=== PATIENT | male | born 2000 | race Caucasian/White ===

== ENCOUNTER 2019-02-08 16:11 | Outpatient (CLI) | payer BC, SELFPAY ==
[2019-02-08 16:39] LABS: Abs Immature Grans 0.01 k/cumm (0.0-0.09); Absolute Basophil Count 0.08 k/cumm (0.0-0.2); Absolute Lymphocyte Count 2.18 k/cumm (1.2-3.4); Absolute Monocyte Count 0.46 k/cumm (0.11-0.7); Absolute Neutrophil Count 3.92 k/cumm (1.2-6.7); Basophils % 1.2; Eosinophils % 1.5; HCT 42.8 % (40.0-50.0); HGB 14.9 g/dL (13.5-17.5); Immature Grans % 0.1; Lymphocytes % 32.3; Mean Corp. HGB Concentration 34.8 g/dL (32.0-36.0); Mean Corpuscular Hemoglobin 29.2 pg (27.0-33.0); Mean Corpuscular Volume 83.9 fL (80-95); Mean Platelet Volume 10.2 fL (8.0-11.0); Monocytes % 6.8; Neutrophils % 58.1; Platelet Count 233 x1000/uL (130-400); RBC Distribution Width 13.1 % (11.8-14.1); White Blood Cell Count 6.75 k/cumm (4.4-10.8)
[2019-02-08 17:27] LABS: ALT 19 U/L (12-78); AST 15 U/L (15-37); Albumin 4.5 g/dL (3.4-5.0); Alkaline Phosphatase 82 U/L (46-116); Bilirubin, Direct 0.33 mg/dL (0.00-0.20); Bilirubin, Total 2.2 mg/dL (0.2-1.0); Total Protein 7.4 g/dL (6.4-8.2)
[2019-02-08 18:09] LABS: ESR 7 MM/HR (0-15)
[2019-02-11 13:15] LABS: Lyme Ab w Rflx to Lyme Confirm Negative
== END 2019-02-08 16:31 ==
PROVIDERS: PCP Family Medicine; Visit Provider Emergency Medicine
DX: M54.9 Dorsalgia, unspecified (principal); M25.50 Pain in unspecified joint
CPT/HCPCS: 80076; 85652; 85025; 86618

== ENCOUNTER 2020-01-17 11:25 | Outpatient (CLI) | payer BC, SELFPAY ==
[2020-01-18 15:50] LABS: COVID-19 RT-PCR UVMMC Result Negative (Negative)
== END 2020-01-17 11:45 ==
PROVIDERS: PCP Family Medicine; Visit Provider Family Medicine
DX: Z11.59 Encounter for screening for other viral diseases (principal)
CPT/HCPCS: U0003

== ENCOUNTER 2020-01-20 15:10 | Outpatient (CLI) | payer BC, SELFPAY ==
[2020-01-20 15:34] LABS: Kit/Specimen SENT
== END 2020-01-20 15:30 ==
PROVIDERS: PCP Family Medicine; Visit Provider Family Medicine
DX: Z00.8 Encounter for other general examination (principal)
CPT/HCPCS: 36415

== ENCOUNTER 2021-01-15 04:41 | Outpatient (CLI) | payer BC, SELFPAY ==
--- NOTE | 2021-01-15 09:15 | DI.RAD_ITS ---
Exam(s) XR THORACIC SPINE COMPLETE EXAM: XR THORACIC SPINE COMPLETE CLINICAL HISTORY: chronic rt mid back pain, s/p injury 3 yrs ago,RT SIDED MYOFASCIAL PAIN,. TECHNIQUE: 2D digital imaging was performed. COMPARISON: No exams were available for comparison FINDINGS: BONES: There is no fracture or destructive lesion. The vertebral bodies and posterior elements are un remarkable. DISKS:Alignment is within normal limits. Interverebral disc spaces are maintained. SOFT TISSUE: Visualized lungs are clear. IMPRESSION: Unremarkable radiographs of the thoracic spine. DATA REPOSITORY: RADIATION DOSE DELIVERED:
== END 2021-01-15 05:01 ==
PROVIDERS: PCP Family Medicine; Visit Provider Family Medicine
DX: M54.89 Other dorsalgia (principal); M79.18 Myalgia, other site
CPT/HCPCS: 72072

== ENCOUNTER 2021-02-04 01:12 | Outpatient (CLI) | payer BC, SELFPAY ==
--- NOTE | 2021-02-04 10:30 | DI.MRI_ITS ---
Exam(s) MR THORACIC SPINE WO EXAM: MR THORACIC SPINE WO CLINICAL HISTORY: chronic rt upper back pain since work injury 3 yrs,RT SIDED MYOFASCIAL PAIN TECHNIQUE: Multiplanar multisequence MRI of the thoracic spine was performed without intravenous con trast. COMPARISON: CR XR THORACIC SPINE COMPLETE from 01/15/2021 FINDINGS: OSSEOUS: There are no acute appearing thoracic vertebral fractures. There are no ominous osseous les ions in the thoracic vertebrae. THORACIC SPINAL CORD: There is no abnormal signal in the thoracic spinal cord and no evidence of foca l cord atrophy nor focal cord swelling. There is no evidence of syringomyelia nor significant spinal cord dysraphism. There is no evidence of mass at the conus medullaris. The position of the conus me dullaris is at normal level. SIGNIFICANT INDIVIDUAL LEVEL FINDINGS: There is a small focal disc protrusion right paracentral at the T6-T7 level this extends posteriorly approximately 2 millimeters and is 5 millimeters wide. It indents the anterior right side of the the shelly sac. No cord deflection. No prominent central canal stenosis at this level. No foraminal steno sis. PARASPINAL TISSUES: No significant masses nor fluid collections evident. IMPRESSION: 1. There is small right paracentral disc protrusion at T6-T7 level no spinal canal stenosis. This sl ightly indents the anterior thecal sac but not the spinal cord. Central canal dimensions are within normal limits. There is no foraminal stenosis at this level nor elsewhere in the thoracic spinal col umn 2. No evidence of acute or subacute compression fracture. 3. No osseous lesions. DATA REPOSITORY:
== END 2021-02-04 01:32 ==
PROVIDERS: PCP Nurse Practitioner Family; Visit Provider Family Medicine
DX: M54.6 Pain in thoracic spine (principal); M79.18 Myalgia, other site; M51.24 Other intervertebral disc displacement, thoracic region
CPT/HCPCS: 72146

== ENCOUNTER 2021-03-15 21:36 | Observation (INO) | payer BC, SELFPAY ==
[2021-03-15 21:54] VITALS: BP 128/88; PULSE 84; RESP 16; TEMP 36.6; O2SAT 96
--- NOTE | 2021-03-15 22:28 | W.ED.GENAD ---
Discharge Plan Disposition Patient Disposition: [facility] INPATIENT Condition: Good Discharge Details Clinical Impression: Suicidal ideation, Homicidal ideation Admit Date/Time: 03/15/21 23:48 Admit Provider: Fernie Burns Attending Provider: Fernie Burns Primary Care Provider: Michael Zuniga ED Provider: Juve Adam Discharge Data Discharge Date/Time-TO BE ENTERED AT DEPARTURE: 03/16/21 00:21 Medical Decision Making <Jose Lemus MD - Last Filed: 03/17/21 02:11> 20-year-old male with history of autism and depression here with exacerbation of depression, suicidal thoughts, also with thoughts of harming others. Patient is here voluntarily. Patient medically screened and no acute medical condition identified. Plan for crisis screener evaluation. One-to-one patient observation initiated. Lab Data Lab results reviewed: Yes I reviewed the patient's lab results. Labs: Laboratory Tests Range/Units 03/15/21 03/15/21 03/15/21 22:25 22:25 22:25 WBC (4.4-10.8) 10^3/uL 6.48 RBC (4.36-5.78) 10^6/uL 4.95 Hgb (13.5-17.5) g/dL 14.5 Hct (40.0-50.0) % 43.3 MCV (80-95) fL 87.5 MCH (27.0-33.0) pg 29.3 MCHC (32.0-36.0) % 33.5 RDW (11.8-14.1) % 12.3 Plt Count (130-400) 10^3/uL 235 MPV (8.0-11.0) fL 10.7 Immature Gran % 0.3 Neutrophils % 59.9 Lymphocytes % 28.4 Monocytes % 6.8 Eosinophils % 3.4 Basophils % 1.2 Nucleated RBC % % 0 Absolute Neutrophils (1.2-6.7) 10^3/uL 3.88 Absolute Lymphocytes (1.2-3.4) 10^3/uL 1.84 Absolute Monocytes (0.1-0.8) 10^3/uL 0.44 Absolute Eosinophils (0.0-0.7) 10^3/uL 0.22 Absolute Basophils (0.0-0.2) 10^3/uL 0.08 Sodium (136-145) mmol/L 140 Potassium (3.5-5.1) mmol/L 4.2 Chloride (98-107) mmol/L 105 Carbon Dioxide (21.0-32.0) mmol/L 26.1 Anion Gap (3-11) mmol/L 8.9 BUN (7-18) mg/dL 10 Creatinine (0.70-1.30) mg/dL 0.8 Estimated GFR/1.73 m2 (mL/min/1.73m2) >= 60.00 Glucose (74-106) mg/dL 93 Calcium (8.5-10.1) mg/dL 9.4 Total Bilirubin (0.2-1.0) mg/dL 0.9 AST (15-37) U/L 12 L ALT (16-63) U/L 16 Alkaline Phosphatase (46-116) U/L 88 Total Protein (6.4-8.2) g/dL 8.1 Albumin (3.4-5.0) g/dL 4.7 Salicylates (<2.8) mg/dL < 2.8 Acetaminophen (10-30) ug/mL < 2 <Juve Adam DO - Last Filed: 03/15/21 23:54> Case was signed out by my colleague Dr. Lemus. Please refer to his HPI, physical exam assessment and plan. At time of signout we are pending reassessment by mental health. Mental health has assessed the patient and agrees with the need for admission. Patient agrees with this and will be admitted voluntarily for homicidal ideations and depression and questionable suicidality as well. Discussed the case with the hospitalist Dr. Burns, he agrees with the assessment and plan. I have extensively reviewed the treatment plan with the patient. I have addressed all patient concerns at this time. I have also discussed the plan with the admitting physician and they agree with the current assessment and plan and have agreed to assume responsibility for the patient. All parties demonstrate verbal understanding and agreement with our assessment and plan at this time. The documentation in this chart was dictated using [employer] dictation software. Please excuse any dictation errors. HPI <Jose Lemus MD - Last Filed: 03/17/21 02:11> General Mode of arrival: ambulatory. Date/Time Provider Initiated Documentation: 03/15/21 21:52. Limitations to Documentation: no limitations. Information obtained by: patient. HPI Narrative: 20-year-old male with history of autism spectrum disorder and depression, presents with chief complaint of suicidal thoughts. Patient notes that he is fine depression and intermittent suicidal thoughts for years. He states he has suicidal thoughts approximately 3 times per week. Symptoms severe. He states he has had thoughts of taking denies having a kitchen and slitting his wrist. He notes he feels no sridevi. Patient is here voluntarily. According to the patient's sister, she notes she had a conversation with the patient today that was very concerning. She notes that he expressed suicidality to her. He apparently also expressed thoughts of harming his mother. He states that he hates his mother whom he lives with. Sister states that he has had chronic depression and suicidality. She was able to convince him to seek care today. Related Data Home Medications Medication Instructions Recorded Confirmed amitriptyline 10 mg tablet 10 mg PO QHS #30 tab 06/23/20 07/22/20 [id number]-[id number]-[id number]-vit K-lycop 1 tab PO DAILY 03/15/21 03/15/21 [One-A-Day Men's Multivitamin] Previous Rx's Medication Instructions Recorded amitriptyline 10 mg tablet 10 mg PO QHS #30 tab 06/23/20 Allergies Allergy/AdvReac Type Severity Reaction Status Date / Time ENVIRONMENTAL Allergy Unknown Uncoded 12/22/20 14:01 General Stated Complaint: PsychEval ETHEL: 2 Review of Systems <Jose Lemus MD - Last Filed: 03/17/21 02:11> All systems reviewed & are unremarkable except as noted in HPI and below Constitutional Constitutional: Denies headache(s) ENT Ears, Nose, Mouth, and Throat: Denies headache(s) Neurologic Neurologic: Denies headache(s) Psychiatric Psychiatric: Reports anxiety and Reports depression PFS <Jose Lemus MD - Last Filed: 03/17/21 02:11> Medical History Thoracic disc herniation Social History Smoking/Tobacco Use Status: Never Second Hand Exposure: Yes Smoking risk assessment performed?: Yes Alcohol Intake: former Drug use: Current Sobriety Substance use type: does not use and marijuana Caregiver/Support person: No Household members: family Housing: house Communication Needs: None Do you need help understanding health information?: Often Pets and animals: No Sexually active: No Do you think of yourself as: straight/heterosexual Current gender identity: male What is your relationship status?: never How often do you talk on the phone with friends or family?: three or more times per week How often do you get together with friends or relatives?: three or more times per week How often do you attend anabaptist or druze services?: decline to answer Do you belong to any clubs or organized social groups?: no Panel score (0-1 are the most socially isolated patients): 1 Seatbelt use: always Helmet use: Yes Helmet use: always Drive intox or ride w/intox delivery driver assistant: No Do you feel safe at home: Yes Do you feel safe in your relationship?: Yes Exam <Jose Lemus MD - Last Filed: 03/17/21 02:11> Const General: cooperative HENMT Head: normocephalic and atraumatic Mouth: moist mucous membranes Eyes Conjunctivae: normal conjunctivae Sclera: normal sclerae Neck Neck: trachea midline and supple Resp Auscultation: clear to auscultation bilaterally, no rales, no rhonchi and no wheezes Cardio Rate: regular rate and not tachycardic Rhythm: regular rhythm GI Palpation: soft, not firm, no guarding, no masses, not rigid and nontender Skin General skin exam: no rashes or lesions noted Neuro General: patient alert, patient awake, patient oriented x3 and tone normal Extrem General: no edema Psych Mental Status: mental status grossly normal Affect: anxious affect Thought Content: suicidality Course <Jose Lemus MD - Last Filed: 03/17/21 02:11> Vital Signs Vital signs: Vital Signs Temperature 36.6 C 03/15/21 21:54 Pulse 84 03/15/21 21:54 Respiratory Rate 16 03/15/21 21:54 Blood Pressure 128/88 03/15/21 21:54 Pulse Oximetry 96 03/15/21 21:54 Temperature 36.6 C 03/15/21 21:54 Temperature Source Oral 03/15/21 21:54 Pulse 84 03/15/21 21:54 Respiratory Rate 16 07/05/21 21:54 Respiratory Effort 03/15/21 21:55 Blood Pressure 128/88 03/15/21 21:54 Blood Pressure Position Sitting 03/15/21 21:54 Pulse Oximetry 96 03/15/21 21:54 Oxygen Delivery Method Room Air 03/15/21 21:54 Oxygen Flow Rate 0 03/15/21 21:54 Pain Level 0 03/15/21 21:54 Sign Out <Jose Lemus MD - Last Filed: 03/17/21 02:11> Sign Out Data: Sign Out Comment: Follow-up crisis screener recommendation. Last updated by Jose Lemus MD at 03/15/21 23:01
[2021-03-15 22:30] LABS: Abs Immature Grans 0.02 10^3/uL (0.0-0.06); Absolute Basophil Count 0.08 10^3/uL (0.0-0.2); Absolute Eosinophil Count 0.22 10^3/uL (0.0-0.7); Absolute Lymphocyte Count 1.84 10^3/uL (1.2-3.4); Absolute Monocyte Count 0.44 10^3/uL (0.1-0.8); Absolute Neutrophil Count 3.88 10^3/uL (1.2-6.7); Basophils % 1.2; Eosinophils % 3.4; HCT 43.3 % (40.0-50.0); HGB 14.5 g/dL (13.5-17.5); Immature Grans % 0.3; Lymphocytes % 28.4; MCH 29.3 pg (27.0-33.0); MCHC 33.5 % (32.0-36.0); MCV 87.5 fL (80-95); MPV 10.7 fL (8.0-11.0); Monocytes % 6.8; Neutrophils % 59.9; Nucleated RBC 0 %; Platelet Count 235 10^3/uL (130-400); RBC 4.95 10^6/uL (4.36-5.78); RDW 12.3 % (11.8-14.1); RDW-SD 39.4 fL; WBC 6.48 10^3/uL (4.4-10.8)
[2021-03-15 22:43] LABS: ALT 16 U/L (16-63); AST 12 U/L (15-37); Albumin 4.7 g/dL (3.4-5.0); Alkaline Phosphatase 88 U/L (46-116); Anion Gap 8.9 mmol/L (3-11); BUN 10 mg/dL (7-18); Bilirubin, Total 0.9 mg/dL (0.2-1.0); CO2 26.1 mmol/L (21.0-32.0); CREATININE 0.8 mg/dL (0.70-1.30); Calcium 9.4 mg/dL (8.5-10.1); Chloride 105 mmol/L (98-107); Glucose 93 mg/dL (74-106); Potassium 4.2 mmol/L (3.5-5.1); Sodium 140 mmol/L (136-145); Total Protein 8.1 g/dL (6.4-8.2)
--- NOTE | 2021-03-15 22:47 | NUR.NOTE ---
Spoke with pt sister Dalila (call first) , Emilee Mom . She states that pt has been SI for years, they had a long talk, felt like he was more serious about SI. States he alluded to murder/suicide re: mom and sister. Stated to her he hates his mom. They had a nice family vacation recently. Has been looking for work recently. spends his time at home playing video games. No guns at home per sister.
[2021-03-15 22:48] LABS: Salicylate < 2.8 mg/dL (<2.8)
[2021-03-15 22:49] LABS: Acetaminophen < 2 ug/mL (10-30)
--- NOTE | 2021-03-16 00:02 | W.PM.HP.N ---
Date of service: 03/16/21 Time of Service: 00:02 Assessment and Plan Assessment and plan (1) Suicidal ideation: Status: Acute Assessment and plan: Depression, with suicidal/homicidal ideation. Will monitor until bed available for transfer. No active medical issues otherwise. History of Present Illness History of Present Illness Chief Complaint: suicidal Narrative: 20 ,male with h/o depression, brought in by family due to expression of frequent and ongoing suicidal thought as well as thoughts of harming his mother. On no meds. In RER was medically cleared anmd agrees to admission pending availability for transfer. Here in ER has been calm and cooperative. States he feels fine at present. Review of Systems All systems reviewed & are unremarkable except as noted in HPI and below PFSH Medical History Thoracic disc herniation Social History Smoking/Tobacco Use Status: Never Second Hand Exposure: Yes Smoking risk assessment performed?: Yes Alcohol Intake: former Drug use: Current Sobriety Substance use type: does not use and marijuana Caregiver/Support person: No Household members: family Housing: house Communication Needs: None Do you need help understanding health information?: Often Pets and animals: No Sexually active: No Do you think of yourself as: straight/heterosexual Current gender identity: male What is your relationship status?: never How often do you talk on the phone with friends or family?: three or more times per week How often do you get together with friends or relatives?: three or more times per week How often do you attend jewish or buddhist services?: decline to answer Do you belong to any clubs or organized social groups?: no Panel score (0-1 are the most socially isolated patients): 1 Seatbelt use: always Helmet use: Yes Helmet use: always Drive intox or ride w/intox subway train driver: No Do you feel safe at home: Yes Do you feel safe in your relationship?: Yes Meds Allergies and Home Medications Allergies Allergy/AdvReac Type Severity Reaction Status Date / Time ENVIRONMENTAL Allergy Unknown Uncoded 12/22/20 14:01 Home Medications Medication Instructions Recorded Confirmed Type amitriptyline 10 mg tablet 10 mg PO QHS #30 tab 06/23/20 07/22/20 Rx uuavsewl-bzx-wswln-vit K-lycop 1 tab PO DAILY 03/15/21 03/15/21 History [One-A-Day Men's Multivitamin] Exam Narrative Exam Narrative: 128/88, 84, 36.6, 16, 96% RA. HEENT atraumatic; neck supple; lungs clear; heart RRR; abdomen soft and NT; extremities w/o edema; neuro Ox3, flat affect, does not appear to be responding to internal stimuli, moves all 4s./ Results Labs Result diagrams: 03/15/21 22:25 03/15/21 22:25 Labs: Laboratory Results - last 24 hr 03/15/21 03/15/21 03/15/21 22:25 22:25 22:25 WBC 6.48 RBC 4.95 Hgb 14.5 Hct 43.3 MCV 87.5 MCH 29.3 MCHC 33.5 RDW 12.3 Plt Count 235 MPV 10.7 Immature Gran % 0.3 Neutrophils % 59.9 Lymphocytes % 28.4 Monocytes % 6.8 Eosinophils % 3.4 Basophils % 1.2 Nucleated RBC % 0 Absolute Neutrophils 3.88 Absolute Lymphocytes 1.84 Absolute Monocytes 0.44 Absolute Eosinophils 0.22 Absolute Basophils 0.08 Sodium 140 Potassium 4.2 Chloride 105 Carbon Dioxide 26.1 Anion Gap 8.9 BUN 10 Creatinine 0.8 Estimated GFR/1.73 m2 >= 60.00 Glucose 93 Calcium 9.4 Total Bilirubin 0.9 AST 12 L ALT 16 Alkaline Phosphatase 88 Total Protein 8.1 Albumin 4.7 Salicylates < 2.8 Acetaminophen < 2 Last Vital Signs Temp 36.6 C 03/15/21 21:54 Pulse 84 03/15/21 21:54 Resp 16 03/15/21 21:54 BP 128/88 03/15/21 21:54 Pulse Ox 96 03/15/21 21:54
[2021-03-16 00:16] LABS: Source Nasal/Nares
[2021-03-16 00:27] VITALS: BP 128/73; PULSE 92; RESP 16; TEMP 37.1; O2SAT 98
[2021-03-16 00:29] LABS: *AMPHETAMINES SCREEN URINE Negative (Negative); *BARBITURATES SCREEN URINE Negative (Negative); *BENZODIAZEPINES SCREEN URINE Negative (Negative); Cannabinoids THC Negative (Negative); Cocaine Screen,Urine Negative (Negative); METHADONE URINE SCREEN Negative (Negative); OPIATES URINE SCREEN Negative (Negative); Tricyclic Antidepressants Negative (Negative)
--- NOTE | 2021-03-16 00:30 | NUR.NOTE ---
Nursing Note: One on one patient moved from ER to room 234 via wheelchair with Device Processing Engineer escort
[2021-03-16 00:33] VITALS: BP 111/71; PULSE 64; RESP 18; TEMP 36.6; O2SAT 97
[2021-03-16 00:40] VITALS: BP 111/71; PULSE 64; RESP 18; TEMP 36.6; O2SAT 97
--- NOTE | 2021-03-16 00:57 | PDOC.MHPN2 ---
Date of service: 03/16/21 Time of Service: 01:06 Mental Health Progress Note Progress Note Progress Note: Presenting Issue: Client presents to ED for SI with plan, and homicidal ideation toward his mother. Client reports history of SI and attempt by hanging in 2017, and history of depression. Precipitating Factors Client reports that chronic pain from a work accident has exacerbated his SI and depression. Client currently lives with his mother, and reports that her neglect and his resentment toward his mother has triggered client to ant to endd his mother's life. Client states he is uncomfortable giving detail on plan/intent around the HI, but reports plan/no intent around SI to be cutting his throat or wrist, or drowning himself. Disposition * Behavior: Client is cooperative and calm *Eye Contact: good/consistent *Mood: depressed *Affect: flat *Appetite: normal *Sleep(troubel falling/staying asleep): poor Plan(please elaborate and include that physician is consulted with plan and/or placement): Client will remain at [facility] to await voluntary placement. Duty to warn initiated with P at 0005 hours 03/16/21 for Emilee Rubio. Clinician's Name , Title, and Signature Shelley Hawkins Type Inspector Make sure that you are photocopying and submitting this to [facility] records Dept. to be scanned into chart.
[2021-03-16 00:58] LABS: COVID-19 PCR Negative (Negative)
[2021-03-16 07:55] VITALS: BP 125/88; PULSE 103; RESP 15; TEMP 36.7; O2SAT 99
--- NOTE | 2021-03-16 12:11 | CMSP_ITS ---
- If Service Date Differs Date of service: 03/16/21 Time of Service: 12:11 Care Management Safety Plan Status: Voluntary - Reason for Wait Reason for Wait: Inpatient Admission VOLUNTARY FOR INPATIENT PSYCHIATRIC STABILIZATION. Patient is appropriate in all interactions since arriving at [facility]; Pt has demonstrated appropriate coping and communication skills, has articulated his or her needs and concerns and is fully engaged during staff interactions. Safety plan has been established with patient, and care team, to adhere to patient goals, identify restrictions based on behavioral status, address nutr ition, and determine allowed personal belongings, tools for hygiene and personal care. Determine level of activity including ambulation, level of supervision, visitors, and determine privileges based on behaviors and level of engagement by pt. SAFETY PLAN: 1. Will remain on suicide precautions. In Paper Clothes 2. Will remain in room under direct supervision of one-on-one staff at all times provided by [employer]; MARILYN, COMMISSION SALES ASSOCIATE vertical punch operator. 3. May have paper cups, plates, finger foods as well as a cardboard spoon with which to eat meals. 4. Follow [facility] Management of the Admitted Behavioral Health Patient policy. 5. Comfort bath system or shower, at RN discretion. 6. No personal belongings, per RN discretion. 7. Visitors-No visitors at this time 8. Activities: soft cart items 9. Bathroom privileges available in room without limitation. 10. Phone: incoming/outgoing calls using [facility] phone, at RN discretion. 11. Due to VOLUNTARY status, if patient wishes to leave [facility], staff will contact [facility] Crisis Screener ([phone]) and On-Call Machine Precision Etcher ([phone]) as soon as possible. In the event of elopement, notify [facility] Police ([phone]). Patient is currently voluntarily at [facility] and seeking inpatient admission when a bed becomes available. [facility] Frontline Table Games Floor Supervisor will continue seeking placement. Please contact the House Carpenter Helper Machine Precision Etcher ([phone]) and [facility] Table Games Floor Supervisor ([phone]) for any needed changes in the Safety Plan. Safety plan has been provided to interdepartmental care team.
--- NOTE | 2021-03-16 12:11 | PDOC.CMSAFE ---
- If Service Date Differs Date of service: 03/16/21 Time of Service: 12:11 Care Management Safety Plan Status: Voluntary - Reason for Wait Reason for Wait: Inpatient Admission VOLUNTARY FOR INPATIENT PSYCHIATRIC STABILIZATION. Patient is appropriate in all interactions since arriving at [facility]; Pt has demonstrated appropriate coping and communication skills, has articulated his or her needs and concerns and is fully engaged during staff interactions. Safety plan has been established with patient, and care team, to adhere to patient goals, identify restrictions based on behavioral status, address nutrition, and determine allowed personal belongings, tools for hygiene and personal care. Determine level of activity including ambulation, level of supervision, visitors, and determine privileges based on behaviors and level of engagement by pt. SAFETY PLAN: 1. Will remain on suicide precautions. In Paper Clothes 2. Will remain in room under direct supervision of one-on-one staff at all times provided by [employer]; MARILYN, ELECTRICAL TECHNICIAN INSTRUCTOR chief substation operator. 3. May have paper cups, plates, finger foods as well as a cardboard spoon with which to eat meals. 4. Follow [facility] Management of the Admitted Behavioral Health Patient policy. 5. Comfort bath system or shower, at RN discretion. 6. No personal belongings, per RN discretion. 7. Visitors-No visitors at this time 8. Activities: soft cart items 9. Bathroom privileges available in room without limitation. 10. Phone: incoming/outgoing calls using [facility] phone, at RN discretion. 11. Due to VOLUNTARY status, if patient wishes to leave [facility], staff will contact [facility] Crisis Screener ([phone]) and On-Call Tub Mender ([phone]) as soon as possible. In the event of elopement, notify [facility] Police ([phone]). Patient is currently voluntarily at [facility] and seeking inpatient admission when a bed becomes available. [facility] Frontline Garment Tag Stringer will continue seeking placement. Please contact the Attendant Honor Bar Tub Mender ([phone]) and [facility] Garment Tag Stringer ([phone]) for any needed changes in the Safety Plan. Safety plan has been provided to interdepartmental care team.
--- NOTE | 2021-03-16 12:18 | NUR.NOTE ---
Nursing Note: 1217: informed pt that his sister, Dalila, had called. pt seems pleased that Dalila will visit when she is allowed. RN notes that pt is sitting on the floor rather than on the stretcher. RN asks pt if he would be more comfortable with the mattress on the floor, pt reports that he believes he would be. RN removes mattress from stretcher and places it on the floor for pt comfort. pt seems appreciative of change. pt currently sitting on mattress up against the wall with blanket wrapped around his shoulders. continue to monitor.
--- NOTE | 2021-03-16 12:21 | CMPROGNOTE_ITS ---
- If Service Date Differs Date of service: 03/16/21 Time of Service: 12:21 Care Management Progress Note S/O: Silver was sitting on his mattress, which was placed on the floor at his request, when CM met with him. He reported that he was feeling ok at that time. CM asked if he continues to have suicidal thoughts to which he responded, no, but there is nothing here for me to hurt myself with. He reported that he lives with his mother, and they do not get along well. He stated that they have not had a good relationship for a long time. He stated that he is currently not working. CM asked if he was interested in anything to keep him busy while he awaits psychiatric placement, which he declined. He stated that he is not watching TV by his choice, but it has been offered to him. He then asked if he was able to leave [facility]. CM explained the process, that he is voluntary, but would need to be re assessed by [facility] prior to him leaving, and that he may be kept involuntarily. He asked to start the process to see if he is able to return home. DAVID paged [facility], and Ines [facility], responded and assessed him. From that assessment, he decided to remain at [facility] voluntarily. DAVID discussed his safety plan with his RN, who stated that his older sister has called to check in on him today. His plan will be reassessed tomorrow, and he may be able to have his sister visit, if he is agreeable to this. At this time it is currently after visiting hours. Per DESIREE Rosa, [place] [facility] [place], [place], and [facility]. There were no beds at any of the inpatient psychiatric facilities available today. CM will continue to follow. A: Silver is a 20 year old male admitted to [facility] on 03/15/21 with depression, SI, HI. P: Silver is voluntary and seeking inpatient psychiatric placement at this time. Per [facility], he meets criteria to be held for admission. [place] been [place] [facility] [place] , , and [facility]. Once a bed has been offered, he will transport via [employer], coordinated by DAVID. He will follow up with [facility], his PCP and his discharge plan of care. CM will continue to follow.
[2021-03-16 15:08] VITALS: BP 121/81; PULSE 100; RESP 19; TEMP 36.6; O2SAT 99
[2021-03-16 19:21] LABS: Bilirubin Negative (Negative); Blood Negative (Negative); Clarity Clear (Clear); Glucose Negative (Negative); Ketones Negative (Negative); Leukocyte Esterase Negative (Negative); Nitrite Negative (Negative); Urobilinogen 0.2 EU/dL (Up TO 0.2)
[2021-03-16 20:09] VITALS: BP 118/73; PULSE 69; RESP 17; TEMP 36.5; O2SAT 97
[2021-03-17 07:16] LABS: TSH (W/Ref FT4) 1.71 uIU/mL (0.36-3.74)
--- NOTE | 2021-03-17 10:07 | DSE_ITS ---
Date of service: 03/17/21 Time of Service: 12:11 DS: Diagnosis Discharge Diagnosis (1) Suicidal ideation: Status: Acute Discharge Plan Disposition Patient Dis[facility] Condition: Good Discharge Details Reason For Visit: Depression,Homicidal Ideations Admit Date/Time: 03/15/21 23:48 Admit Provider: Fernie Burns Attending Provider: Fernie Burns Primary Care Provider: Michael Zuniga Hospital Course Hospital Course: This is a 20-year-old male with history of autism spectrum disorder and depression, who presented to the ED at the urging of his sister, with suicidal thoughts. He also told her he had thoughts of killing his mother, who he lives with. Patient reports depression and intermittent suicidal thoughts for years. He has chronic pain from a reported work place injury. His plan would be to drown or slit his wrists. He notes he feels no sridevi. He was medically cleared in the ED and was screened by mental health. He was admitted voluntarily while awaiting an inpatient psychiatric bed, he has had no behavioral issues while hospitalized. [facility] by [facility] discharge discussed with DR Montes De Oca [place] Meds and New Rx's Prescriptions: Continued amitriptyline 10 mg tablet 10 mg PO QHS Qty: 30 RF: 5 One-A-Day Men's Multivitamin 400-20-300 mcg Tablet 1 tab PO DAILY RF: 0 Discharge Instructions Instructions: Depression (DC), Suicide Prevention (DC) Referrals: Michael Zuniga, [employer] TESTER [Primary Care Provider] - (on discharge from inpatient psychiatric facility) Activity:: Activity as Tolerated Equipment/Supplies:: No Equipment Needed Diet:: As Tolerated Discharge Orders Discharge Orders: Discharge Order (Routine); Ordered 03/17/21 Ordered By: Olivia Llanos DS: Summary Time Spent with Patient providing and/or coordinating discharge services: Less than 30 minutes Status at Discharge Functional status at discharge: independent ambulation Overall status at discharge: patient is not back to baseline Mental Status: mental status grossly normal Speech and Movement: speech and movement normal Mood: other (depression) Affect: anxious affect Exam Const General: cooperative HENMT Head: normocephalic and atraumatic Mouth: moist mucous membranes Eyes Conjunctivae: normal conjunctivae Sclera: normal sclerae Neck Neck: trachea midline and supple Resp Auscultation: clear to auscultation bilaterally, no rales, no rhonchi and no wheezes Cardio Rate: regular rate and not tachycardic Rhythm: regular rhythm GI Palpation: soft and nontender Skin General skin exam: no rashes or lesions noted Neuro General: patient alert, patient awake and patient oriented x3 Extrem General: no edema Psych Mental Status: mental status grossly normal Speech and Movement: speech and movement normal Affect: anxious affect Thought Content: suicidality DS: Data Vitals/I&O Vitals and I&O: Vital Signs Temperature 36.5 C 03/16/21 20:09 Temperature Source Tympanic 03/16/21 20:09 Pulse 69 03/16/21 20:09 Pulse Rhythm Regular 03/17/21 09:32 Respiratory Rate 17 03/16/21 20:09 Respiratory Effort Non-Labored 03/17/21 09:32 Respiratory Depth Normal 03/17/21 09:32 Respiratory Pattern Normal 03/17/21 09:32 Blood Pressure 118/73 03/16/21 20:09 Blood Pressure Position Sitting 03/15/21 21:54 Pulse Oximetry 97 03/16/21 20:09 Oxygen Delivery Method Room Air 03/16/21 20:09 Oxygen Flow Rate 0 03/16/21 20:09 Pain Level 0 03/16/21 20:09 Intake & Output 03/16/21 03/16/21 03/17/21 11:59 23:59 11:59 Intake Total 750 / 750 Output Total 600 / 600 Balance 150 / 150 Weight 61.235 kg Intake: Oral 750 / 750 Output: Urine 600 / 600 Other: Urine Color Yellow Yellow Urine Appearance Clear Clear Clear Urine Odor Normal Normal Comment Patient up to bathroom. pT was asked to give urine sample when they felt the urge to go. 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 Stool Size Moderate Voiding Methods Toilet Urinal Data Completed and Pending Labs on day of discharge: Labs from last 24 hours 03/17/21 03/16/21 06:15 18:45 TSH 1.71 Urine Color Yellow Urine Clarity Clear Urine pH 7.0 Ur Specific [place] 1.020 Urine Protein Negative Urine Ketones Negative Urine Blood Negative Urine Nitrite Negative Urine Bilirubin Negative Urine Urobilinogen 0.2 Ur Leukocyte Esterase Negative Urine Glucose Negative [facility] Medical History Thoracic disc herniation Social History Smoking/Tobacco Use Status: Never Second Hand Exposure: Yes Smoking risk assessment performed?: Yes Alcohol Intake: former Drug use: Current Sobriety Substance use type: does not use and marijuana Caregiver/Support person: No Household members: family Housing: house Communication Needs: None Do you need help understanding health information?: Often Pets and animals: No Sexually active: No Do you think of yourself as: straight/heterosexual Current gender identity: male What is your relationship status?: never How often do you talk on the phone with friends or family?: three or more times per week How often do you get together with friends or relatives?: three or more times per week How often do you attend sabianist or adventism services?: decline to answer Do you belong to any clubs or organized social groups?: no Panel score (0-1 are the most socially isolated patients): 1 Seatbelt use: always Helmet use: Yes Helmet use: always Drive intox or ride w/intox service parts driver: No Do you feel safe at home: Yes Do you feel safe in your relationship?: Yes
--- NOTE | 2021-03-17 16:18 | MHPN_ITS ---
Date of service: 03/17/21 Time of Service: 09:05 Mental Health Crisis Note Presenting Issue How did you arrive at the ED and why did you come: The client presented to [facility] ED 7.03.01 after disclosing to his sister worsening symptoms of depression, suicidal ideation, and thoughts of harming his mother. He is currently on voluntary status and is awaiting in-patient placement. Precipitating Factors Client presented lying down on mattress that was placed on the floor of his hospital room. Appearance was unremarkable. Fully alert and oriented to time, person, place and situation. No memory deficits noted, however client reported that he has a tendency to 'zone out' and lose focus when speaking to people. Behavior was calm and appropriate throughout interaction with good eye contact. Mood reported as Fine with mixed mildly depressive / flat affect. Speech normal rate and tone, unpressured, and responsive to all questions with clear and fluid verbal economy. No reported appetite issues, dysregulated / poor sleep. Client shared that he has been living with chronic pain and discomfort since a work-related injury and stated that the pain exacerbates his depressive symptoms. He stated preference for minimal stimulation and shared that he typically experiences no sridevi. He shared experiencing recurrent suicidal ideation, sometimes daily, since high school, with proposed method of cutting his throat with a box annealer knife kept by his bedside. In addition he disclosed generalized thoughts of harming his mother, with whom he has been residing his entire life. He stated She should have been there for me in the past and she wasn't. Sometimes when I hear her voice I get really angry. He did not endorse intention to harm himself or others at time of assessment and reported that I could see myself hurting myself - it's more of an [id number] thing. I don't see myself hurting her though. Disposition BEHAVIOR: Calm, cooperative, appropriate EYE CONTACT: Good MOOD: Fine. AFFECT: Mixed depressed/ euthymic APPETITE: No reported issues SLEEP(trouble falling/staying asleep: Sleep dysregulation Plan Client accepted to [facility] and transported at 1:30p per [facility] CM. Signature Clinician's Name/Title: Uriel Guerra [facility] clinician / hp
--- NOTE | 2021-03-17 19:01 | PDOC.CMDIS ---
- If Service Date Differs Date of service: 03/17/21 Time of Service: 19:01 LACE Index Scoring Tool - Questions: Length of Stay (in days): 2 Acuity (Admit via E.D.?): Yes E.D. Visits: 1 - Answers: Total Score: 6 Risk of Readmission: Low Risk Care Management Discharge Reason for Hospitalization: Depression, SI, HI Discharge Plan: Silver was transferred to [facility] today via [facility], coordinated by DAVID. CM coordinated a phone call with his sister, Dalila prior to his discharge. Silver asked for assistance with housing resources, and CM sent a referral to Lila who can follow up with him in the community following his discharge from . He may qualify for [facility] and resources for housing. He was agreeable to going to . Patient/Family Education Needs: Review discharge instructions, discussion of self care needs including ask me three. Services Needed at Discharge: Psychiatric Facility ([facility]), Transportation ([facility]) - Disposition Disposition: [place] Transport via of: Violin Repairer ([facility])
== END 2021-03-17 13:43 | disposition short-term general hospital (02) ==
LOC: ER 03-16 00:27 → MS 03-16 00:28
PROVIDERS: Nurse Practitioner Acute Care; Student in an Organized Health Care Education/Training Program; Admitting Provider General Practice; Emergency Provider Student in an Organized Health Care Education/Training Program; PCP Nurse Practitioner Family; Visit Provider General Practice
DX: F32.9 Major depressive disorder, single episode, unspecified (principal); R45.851 Suicidal ideations; R45.850 Homicidal ideations; F84.0 Autistic disorder; G89.29 Other chronic pain; Z20.822 Contact with and (suspected) exposure to COVID-19
CPT/HCPCS: 36415; 80053; 80307; 87635; 99285; 80329; 81003; 84443; 85025; 99217; 99218; 99284; G0378